=== PATIENT | female | born 1990 | race Asian ===

== ENCOUNTER 2017-08-07 17:20 | Emergency (ER) | payer OTHER ==
[~2017-08-07] VITALS: Ht 160 cm; Wt 77.3 kg
[2017-08-07 17:52] VITALS: BP 141/98
== END 2017-08-07 19:29 | disposition home or self-care (01) ==
LOC: EMS 17:22
DX: S01.311A Laceration without foreign body of right ear, initial encounter (principal); S01.312A Laceration without foreign body of left ear, initial encounter; W22.8XXA Striking against or struck by other objects, initial encounter; Y93.89 Activity, other specified; Y92.89 Other specified places as the place of occurrence of the external cause; Y99.8 Other external cause status
CPT/HCPCS: 99283